=== PATIENT | male | born 1960 | race Caucasian/White ===

== ENCOUNTER → 2021-12-24 | Emergency (ER) | payer BC ==
[2022-01-10 13:20] LABS: ANION GAP 5.7 meq/L (7-15); CHLORIDE,CL 105 mmol/L (98-107); ESTIMATED GFR 87 mL/min (>=60); SODIUM,NA 141 mmol/L (136-145)
== END ==
LOC: LL.ED 10:15
DX: I10 Essential (primary) hypertension (principal)
CPT/HCPCS: 36415; 80053; 83735; 85025; 99283

== ENCOUNTER 2023-02-21 10:08 | Day surgery (SDC) | payer BC ==
[~2023-02-21 10:08] MED LIST: Midazolam 1 MG/ML 2 ML SDV ONE; Propofol 200 MG/20 ML SDV ONE
[2023-02-21] MEDS ORDERED: Sodium Chloride 0.9% 10 ML Syringe FLUSH PRN (10:30)
[2023-02-21] MEDS: Lactated Ringers 1,000 ML IV SCH (10:48)
== END 2023-02-21 14:00 | disposition home or self-care (01) ==
LOC: LL.SDS 10:08
PROVIDERS: ATTEND Surgery
DX: Z12.11 Encounter for screening for malignant neoplasm of colon (principal); I10 Essential (primary) hypertension; E78.1 Pure hyperglyceridemia; Z79.899 Other long term (current) drug therapy
CPT/HCPCS: 00812; J2250; J2704; J7120